=== PATIENT | female | born 1955 | race Caucasian/White ===

== ENCOUNTER → 2017-01-13 | Outpatient (CLI) | payer OTHER ==
[~2017-01-13] MED LIST: ALTA1CAP2 PO; BISO5TAB5 PO; COUM2.5T17 PO; PERC5TAB12 PO
[2017-01-13 10:39] LABS: MEAN CORPUSCULAR HEMOGLOBIN 29.7 pg (27.0-33.0); MEAN CORPUSCULAR HGB CONC 34.2 g/dl (32.0-36.5); MEAN CORPUSCULAR VOLUME 86.8 fl (80.0-96.0); RED CELL DISTRIBUTION WIDTH 12.8 % (11.5-14.5); WHITE BLOOD COUNT 4.8 K/mm3 (4.0-10.0)
[2017-01-13 10:43] LABS: INR 0.91
--- NOTE | 2017-01-13 10:57 | REP ---
Chest two views HISTORY: Preop Comparison: None The lungs are clear. The cardiac silhouette is enlarged. The pulmonary vasculature is normal in appearance. The bony structure is intact. IMPRESSION: Cardiomegaly. Signed by Naeem Cabrera MD 01/13/2017 10:48 A
[2017-01-13 11:09] LABS: ALBUMIN 3.8 GM/DL (3.2-5.2); ALBUMIN/GLOBULIN RATIO 1.23 (1.00-1.93); ALKALINE PHOSPHATASE 48 U/L (45-117); ALT/SGPT 18 U/L (12-78); ANION GAP 7 MEQ/L (8-16); AST/SGOT 15 U/L (15-37); BILIRUBIN,TOTAL 0.4 MG/DL (0.2-1.0); BLOOD UREA NITROGEN 7 MG/DL (7-18); CALCIUM LEVEL 8.9 MG/DL (8.8-10.2); CARBON DIOXIDE LEVEL 30 MEQ/L (21-32); CHLORIDE LEVEL 96 MEQ/L (98-107); CREATININE FOR GFR 0.58 MG/DL (0.55-1.02); GLOMERULAR FILTRATION RATE > 60.0 (>45); GLUCOSE, FASTING 98 MG/DL (80-110); POTASSIUM SERUM 4.1 MEQ/L (3.5-5.1); SODIUM LEVEL 133 MEQ/L (136-145); TOTAL PROTEIN 6.9 GM/DL (6.4-8.2)
--- NOTE | 2017-01-13 19:22 | ECGEPIP ---
Stationary ECG Study [facility] [place] Test Date: 2017-01-13 Pat Name: JELANI RAY Department: Room: - Gender: F Etl Application Developer: : [id number] Requested By: Justino Cano Order Number: [id number] Reading MD: Brian Rosales Measurements Intervals [place] Rate: 71 P: 7 NH: 184 QRS: 25 QRSD: 91 T: 9 QT: 378 QTc: 411 Interpretive Statements Normal sinus rhythm with isolated PAC. Somewhat low voltages with poor precordial R-wave progression and persistent S waves V5 and V6; body habitus versus pulmonary disease. Rule out prior septal infarction. No prior tracing. Clinical correlation advised. Electronically Signed On 01-13-2017 19:22:25 EDT by Brian Rosales
== END ==
LOC: M ADMPAT 09:36
PROVIDERS: ATTEND Orthopaedic Surgery
DX: Z01.818 Encounter for other preprocedural examination (principal); M16.11 Unilateral primary osteoarthritis, right hip; I51.7 Cardiomegaly

== ENCOUNTER 2017-01-20 06:27 | Inpatient (IN) | payer OTHER ==
[2017-01-13 10:14] VITALS: BP 132/76
--- NOTE | 2017-01-15 11:22 | HPE ---
DATE OF ADMISSION: 01/20/2017 HISTORY OF PRESENT ILLNESS: This is a pleasant female with continuing symptomatic right hip osteoarthritis. The patient has consented for a right total hip arthroplasty per Dr. Jerome Hampton. X-rays are consistent with advanced osteoarthritis. The patient is scheduled to see Dr. Aviles today for medical optimization. ALLERGIES: None known to drugs. CURRENT MEDICATIONS: - Mobic 7.5 mg - Ramipril 2.5 mg - vitamin D3 2000 units - [place] 3 1200 mg - glucosamine chondroitin MEDICAL PROBLEM LIST (includes): 1. Symptomatic right hip osteoarthritis. 2. Hypertension. SURGICAL HISTORY: Positive for total hysterectomy. FAMILY HISTORY: Positive for hypertension, skin cancer, hypercholesteremia, arthritis. SOCIAL HISTORY: Denies ethanol intake, smoking or illicit drugs. REVIEW OF SYSTEMS: Denies chest pain, shortness of breath, dyspnea on exertion, fever, chills, malaise, upper respiratory or urinary tract symptoms. PHYSICAL EXAMINATION: Weight 169, height 5 feet 4-1/4 inches, temperature 97.8, blood pressure (BP) 160/90, pulse 76, respirations 18. This is a pleasant, well-developed, well-nourished female in no acute distress. She is alert and oriented times three. Mood and affect are appropriate. She is ambulating with favoring of her left lower extremity. No gross antalgia or assistive device. Lower extremities were inspected. Skin temperature, sensory and motor are within normal limits. Right hip range of motion is limited and irritable throughout ranges. Bowel soft, nontender, with sounds times four. Chest rises symmetrically. Negative murmurs, gallops or rubs. Lungs: Clear to auscultation. Neck: Supple. Negative jugular venous distention (JVD) or bruits. Normocephalic. LABS AND DIAGNOSTICS: Were reviewed. Her urinalysis (UA) showed 2+ leukocyte esterase, 1+ urine blood, 20 WBC urine auto, 4 RBC urine auto, bacteria urine auto 1+. Urine culture specimen appeared contaminated. Nasal and sinus culture showed normal raven present, Staphylococcus aureus heavy. Chest x-ray as read by Dr. Cabrera showed cardiomegaly via [facility], transcribed on 01/13/2017. EKG normal sinus rhythm with isolated PAC as read by Dr. Rosales. IMPRESSION: 1. Symptomatic right hip osteoarthritis. 2. Patient consented for right total hip arthroplasty per Dr. Jerome Hampton. 3. Medical optimization scheduled today with Dr. Aviles. 4. mail caller to operating room (OR) 2 grams IV Kefzol. 5. Sequential compression device (SCD) and thromboembolic deterrent stockings (TEDS) in OR. 6. Hibiclens and Bactroban protocol per heavy Staphylococcus aureus on nasal and sinus culture. [facility]
[~2017-01-20] VITALS: Ht 162.6 cm; Wt 74.8 kg
[2017-01-20] VITALS (11 sets, daily range): BP systolic 120–172; BP diastolic 64–90; O2SAT 98–99
[~2017-01-20 06:27] MED LIST changes: -BISO5TAB5 PO; -COUM2.5T17 PO; -PERC5TAB12 PO
[2017-01-20] MEDS ORDERED: LR 1,000 ML IV SCH ×2 (07:00→10:00)
[2017-01-20] MEDS ORDERED: ACETAMINOPHEN 500 MG TAB PO ONE (07:00)
[2017-01-20] MEDS ORDERED: LR 1,000 ML IV ONE (07:00)
[2017-01-20] MEDS ORDERED: ceFAZolin 1GM INJ (J0690) As Ordered ONE (07:01)
[2017-01-20] MEDS ORDERED: fentaNYL 100 MCG/2 ML INJECTION (J3010) As Ordered ONE (07:09)
[2017-01-20] MEDS ORDERED: BISO5TAB5 PO (07:09)
[2017-01-20] MEDS ORDERED: MIDAZOLAM INJ 2 MG/2 ML VIAL (J2250) As Ordered ONE (07:09)
[2017-01-20] MEDS ORDERED: PROPOFOL 200 MG/20 ML VIAL As Ordered ONE (08:21)
[2017-01-20] MEDS ORDERED: ONDANSETRON 4MG/2ML VIAL (J2405) As Ordered ONE (08:21)
[2017-01-20] MEDS ORDERED: LIDOCAINE 2% INJ 100 MG/5 ML SDV (FOR ANES.) As Ordered ONE (08:21)
[2017-01-20] MEDS ORDERED: hydrALAZINE INJ 20 MG/ML VIAL As Ordered ONE (08:26)
[2017-01-20] MEDS ORDERED: dexameTHASONE 4 MG/ML 1ML VIAL (J1100) As Ordered ONE (09:05)
[2017-01-20] MEDS ORDERED: MORPHINE 1MG/ML IN 0.9% NACL 100ML IV BAG As Ordered ONE (09:49)
[2017-01-20] MEDS ORDERED: diphenhydrAMINE INJ 50MG/ML VIAL (J1200) IV PRN (10:00)
[2017-01-20] MEDS ORDERED: fentaNYL 100 MCG/2 ML INJECTION (J3010) IV PRN (10:00)
[2017-01-20] MEDS ORDERED: ONDANSETRON 4MG/2ML VIAL (J2405) IV PRN ×2 (10:00)
[2017-01-20] MEDS ORDERED: EPIDURAL/PCA KEYS XX PRN (10:00)
[2017-01-20] MEDS ORDERED: MORPHINE 1MG/ML IN 0.9% NACL 100ML IV BAG IV PRN (10:00)
[2017-01-20] MEDS ORDERED: NALBUPHINE HCL 10 MG/ML AMP (J2300) IV PRN (10:00)
[2017-01-20] MEDS: LR 1,000 ML IV SCH ×2 (10:00→22:30)
[2017-01-20] MEDS ORDERED: ACETAMINOPHEN TAB 650MG DOSE (2X325MG) PO PRN (10:00)
[2017-01-20] MEDS ORDERED: MORPHINE 2 MG/ML 1ML SYRINGE IV PRN (10:00)
[2017-01-20] MEDS ORDERED: FLEET ENEMA PR PRN (10:00)
[2017-01-20] MEDS ORDERED: NALOXONE INJ 0.4 MG/1 ML VIAL (J2310) IV PRN (10:00)
--- NOTE | 2017-01-20 13:44 | IPNPDOC ---
Subjective Date Seen The patient was seen on 01/20/17. Subjective Chief Complaint/HPI The patient is a 61-year-old female admitted with a reason for visit of Right Hip Arthritis. Events since last encounter Pain controlled, using peanut sheller, no chest pain, not short of breath Constitutional: Denies: Chills Pulmonary: Denies: Dyspnea, Cough Cardiovascular: Denies: Chest Pain Gastrointestinal: Denies: Nausea, Vomiting, Abdominal Pain Objective Physical Examination General Exam: Positive: Alert, Cooperative, No Acute Distress ENT Exam: Positive: Mucous membr. moist/pink Chest Exam: Positive: Clear to auscultation, Negative: Rales, Rhonchi, Wheezing Heart Exam: Positive: Rate Normal, Regular Rhythm, Normal S1, Normal S2 Abdomen Exam: Positive: BS Hypoactive, Soft, Negative: Tenderness Extremity Exam: Negative: Edema Assessment /Plan Problems (1) OA (osteoarthritis) Problem Text: Patient s/p R hip arthoplasty completed 01/20/17 Pain management, dvt prophylaxis, bowel regimen, activity, d/c per ortho (2) HTN (hypertension) Problem Text: Elevated related to pain continue recently started beta saurabh hold ailyn inhibitor (3) Hyperlipidemia Status: Chronic Problem Text: diet controlled Plan/VTE VTE Prophylaxis Ordered?: Yes VS, I&O, 24H, Fishbone Vital Signs/I&O Vital Signs Date Time Temp Pulse Resp B/P (MAP) Pulse Ox O2 Delivery O2 Flow Rate FiO2 01/20/17 11:05 97.9 58 20 160/80 (106) 98 Room Air MARY OLIVEIRA MD Jan 20, 2017 13:44
[2017-01-20] MEDS ORDERED: WARFARIN SOD 5 MG TAB PO ONE (17:00)
--- NOTE | 2017-01-21 00:43 | RO ---
DATE OF PROCEDURE: 01/20/2017 PREPROCEDURE DIAGNOSIS: Right hip osteoarthritis. POSTPROCEDURE DIAGNOSIS: Right hip osteoarthritis. PROCEDURE: Right total hip arthroplasty using a size 52 [place] cup with a 36 neutral liner and a high offset #7 [place] stem with a +5 neck. SURGEON: Dr. Justino Hampton STUDIO HAND: Mr. Valentino Ledesma ANESTHESIA: Spinal. ESTIMATED BLOOD LOSS: 150 mL. SPECIMENS: Femoral head. COMPLICATIONS: None. DESCRIPTION OF PROCEDURE: Antibiotics were given intravenously preoperatively and successful spinal anesthetic was induced, Brenner catheter was placed, then she was placed in a lateral decubitus position with a Fromberg hip positioner utilized, axillary roll was utilized, down leg well padded, especially the peroneal nerve. Right hip area was then prepped and draped in the usual sterile fashion. Then, after an appropriate time-out, a longitudinal incision was made for a direct lateral approach to the hip. Bovie cautery was used to coagulate the crossing vessels, and then we divided the tensor fascia in line with the skin incision, split the gluteus medius and anterior one-third, posterior two-third junction, divided the underlying gluteus minimus and hip capsule, carefully dissected off the proximal femur as we externally rotated and dislocated the hip anteriorly. Starter reamer was placed in the piriformis fossa, followed by the canal finding reamer, then the lateralizing reamer, then we reamed up to a size 7 reamer. Femoral neck osteotomy was performed with a femoral neck guide. We then broached up to a size 7. Calcar planing was not needed. We then exposed the acetabulum, performed a labral excision 360 degrees. She had quite a dysplastic hip, she somewhat laterally subluxed and worn superiorly. We deepened with a 47 mm reamer down to the teardrop. She had relatively soft bone and then expanded from there up to a size 51. A trial 52 fit nicely with the external guide, I think to set her abduction and version, and then I placed the real cup after copiously irrigating. The neutral liner was then placed, then we replaced the broach after irrigating copiously the femoral canal and then the trialed first with a 1.5 standard offset with a 36 mm ball. Cup was in good position, and she had good smooth flexion internal rotation with adduction as well as extension external rotation, but she needed more offset as well as a little bit more length, I judged based on the soft tissue tensioning. Thus, I trialed with a +5 high offset head and neck combination, and it gave her excellent stability to flexion internal rotation and extension external rotation, minimal soft tissue telescoping. I thought that was the appropriate size to use; thus, I removed all of the trial components, copiously irrigated out the femoral canal and the soft tissues once again and placed the real #7 stem, dried the trunnion, placed the +5 x 36 head and then reduced the hip. We then copiously irrigated once again and then carefully closed the anterior capsule and gluteus minimus back anatomically with interrupted #1 PDS sutures, then closed the gluteus medius back to the trochanter with interrupted #1 PDS sutures, irrigating between layers, closed the tensor fascia with a combination of #1 PDS suture and a #1 running Stratafix, irrigated again and closed the deep subdermal tissues with interrupted #2-0 PDS sutures, skin was closed with celsa, covered by Adaptic, dry sterile bulky dressing. She was then turned supine and transferred to the recovery room in stable condition. There were no intraoperative complications. Mr. Valentino Ledesma was critical to the success of the procedure by helping to manipulate the knee, helping to dislocate and relocate the hip several times throughout the operation, helped to close the wound, helped to apply appropriate soft tissue retraction so I could perform the operation smoothly and efficiently.
[2017-01-21 03:00] VITALS: BP 164/81
[2017-01-21] MEDS ORDERED: PERCOCET 5MG/325MG TAB PO PRN (06:45)
[2017-01-21 07:00] VITALS: BP 147/76
[2017-01-21 07:08] LABS: MEAN CORPUSCULAR HEMOGLOBIN 29.9 pg (27.0-33.0); MEAN CORPUSCULAR HGB CONC 34.4 g/dl (32.0-36.5); MEAN CORPUSCULAR VOLUME 86.8 fl (80.0-96.0); RED CELL DISTRIBUTION WIDTH 13.1 % (11.5-14.5); WHITE BLOOD COUNT 8.8 K/mm3 (4.0-10.0)
[2017-01-21 07:10] LABS: INR 1.06
[2017-01-21 07:35] LABS: ANION GAP 6 MEQ/L (8-16); BLOOD UREA NITROGEN 15 MG/DL (7-18); CALCIUM LEVEL 8.4 MG/DL (8.8-10.2); CARBON DIOXIDE LEVEL 29 MEQ/L (21-32); CHLORIDE LEVEL 98 MEQ/L (98-107); CREATININE FOR GFR 0.72 MG/DL (0.55-1.02); GLOMERULAR FILTRATION RATE > 60.0 (>45); GLUCOSE, FASTING 138 MG/DL (80-110); SODIUM LEVEL 133 MEQ/L (136-145)
--- NOTE | 2017-01-21 08:58 | REP ---
Right hip two views postoperative study: There is a total hip arthroplasty. The components are tightly applied and in satisfactory position and alignment. Skin celsa are incidentally noted. Signed by Quang Sanabria MD 01/21/2017 08:50 A
[2017-01-21] MEDS ORDERED: ONDANSETRON 4 MG TAB (S0181) PO PRN (09:15)
[2017-01-21] MEDS ORDERED: ONDANSETRON 4MG/2ML VIAL (J2405) IV PRN (09:15)
[2017-01-21 10:00] VITALS: BP 157/74
[2017-01-21] MEDS: MIRALAX *UNIT DOSE* 17GM PACKET PO SCH (10:08)
[2017-01-21] MEDS: SENOKOT S TAB PO SCH ×2 (10:08→20:56)
[2017-01-21] MEDS: MOM 30ML SUSPENSION UDC PO SCH (10:08)
[2017-01-21] MEDS: BISOPROLOL FUMARATE 5 MG TAB PO SCH (10:09)
[2017-01-21 14:00] VITALS: BP 148/72
[2017-01-21] MEDS: PERCOCET 5MG/325MG TAB PO PRN ×2 (15:58→20:56)
[2017-01-21] MEDS ORDERED: WARFARIN SOD 5 MG TAB PO ONE (17:00)
[2017-01-21 20:00] VITALS: O2SAT 97
[2017-01-21 22:00] VITALS: BP 174/83
[2017-01-22] MEDS: PERCOCET 5MG/325MG TAB PO PRN ×3 (01:06→12:34)
[2017-01-22 06:00] VITALS: BP 170/90
[2017-01-22 06:43] LABS: MEAN CORPUSCULAR HGB CONC 33.1 g/dl (32.0-36.5); MEAN CORPUSCULAR VOLUME 87.6 fl (80.0-96.0); RED CELL DISTRIBUTION WIDTH 13.3 % (11.5-14.5); WHITE BLOOD COUNT 6.4 K/mm3 (4.0-10.0)
[2017-01-22 06:46] LABS: INR 1.32
[2017-01-22 07:01] LABS: ANION GAP 6 MEQ/L (8-16); BLOOD UREA NITROGEN 11 MG/DL (7-18); CALCIUM LEVEL 8.2 MG/DL (8.8-10.2); CARBON DIOXIDE LEVEL 30 MEQ/L (21-32); CHLORIDE LEVEL 101 MEQ/L (98-107); CREATININE FOR GFR 0.62 MG/DL (0.55-1.02); GLOMERULAR FILTRATION RATE > 60.0 (>45); GLUCOSE, FASTING 112 MG/DL (80-110); POTASSIUM SERUM 4.2 MEQ/L (3.5-5.1); SODIUM LEVEL 137 MEQ/L (136-145)
[2017-01-22] MEDS ORDERED: PERC5TAB12 PO (08:02)
[2017-01-22] MEDS ORDERED: COUM2.5T17 PO (08:02)
[2017-01-22] MEDS: MIRALAX *UNIT DOSE* 17GM PACKET PO SCH (08:14)
[2017-01-22 08:15] VITALS: BP 173/80
[2017-01-22] MEDS: SENOKOT S TAB PO SCH (08:15)
[2017-01-22] MEDS: MOM 30ML SUSPENSION UDC PO SCH (08:15)
[2017-01-22] MEDS: BISOPROLOL FUMARATE 5 MG TAB PO SCH (08:15)
[2017-01-22 14:00] VITALS: BP 148/75
--- NOTE | 2017-01-28 12:45 | DSES ---
DATE OF ADMISSION: 01/20/2017 DATE OF DISCHARGE: 01/22/2017 ATTENDING PHYSICIAN: Dr. Jerome Hampton ADMISSION DIAGNOSIS: Osteoarthritis of the right hip. OTHER DIAGNOSES: Hypertension, elevated lipids. DISCHARGE DIAGNOSIS: Osteoarthritis of right hip status post right total hip arthroplasty. OPERATION PERFORMED: Right total hip arthroplasty. HISTORY: This is a pleasant 61-year-old female patient with progressively worsening right hip pain and stiffness. She failed to improve with conservative management. She was admitted for elective hip replacement on the right side. HOSPITAL COURSE: The patient was admitted on the day of surgery and underwent a right total hip arthroplasty, which was uneventful. She did well in the postoperative period and hospital course was without complications. She was up with physical therapy per their protocol and her pain was controlled on day of discharge. She was doing well, weightbearing as tolerated on the right lower extremity. She will use adjusted dose Coumadin and MATT stockings for 30 days postoperative for deep vein thrombosis (DVT) prophylaxis. She will resume her preoperative medications and diet. She was given instructions to include but not limited to wound monitoring, activity limitations. She will followup in our office in 10-14 days for surgical followup. She will resume her preoperative medications and diet. She use oral pain medications for pain control. Please refer the medical record for further details.
== END 2017-01-22 15:15 | disposition home health service (06) | DRG 470 ==
LOC: M OR 06:27 → M MS5PR 10:25
PROVIDERS: ADMIT Orthopaedic Surgery; ATTEND Orthopaedic Surgery
PROC: 0SR902A Replacement of Right Hip Joint with Metal on Polyethylene Synthetic Substitute, Uncemented, Open Approach (ICD-10-PCS; principal; 2017-01-20 07:30)
DX: M16.11 Unilateral primary osteoarthritis, right hip (principal); Z79.899 Other long term (current) drug therapy; I10 Essential (primary) hypertension; Z90.710 Acquired absence of both cervix and uterus; Z82.49 Family history of ischemic heart disease and other diseases of the circulatory system; Z80.8 Family history of malignant neoplasm of other organs or systems; Z83.49 Family history of other endocrine, nutritional and metabolic diseases; E78.5 Hyperlipidemia, unspecified

== ENCOUNTER → 2017-01-23 | Outpatient (REF) | payer OTHER ==
[~2017-01-23] MED LIST changes: +BISO5TAB5 PO; +COUM2.5T17 PO; +PERC5TAB12 PO
[2017-01-23 15:38] LABS: INR 1.58
== END ==
LOC: M LAB REF 15:18
PROVIDERS: ATTEND Nurse Practitioner Family
DX: M16.11 Unilateral primary osteoarthritis, right hip (principal); Z51.81 Encounter for therapeutic drug level monitoring; Z79.01 Long term (current) use of anticoagulants

== ENCOUNTER → 2017-02-03 | Outpatient (REF) | payer OTHER ==
[2017-02-03 11:56] LABS: INR 1.1
== END ==
LOC: M LABDRAW1 11:30
PROVIDERS: ATTEND Orthopaedic Surgery
DX: Z51.81 Encounter for therapeutic drug level monitoring (principal); Z79.01 Long term (current) use of anticoagulants

== ENCOUNTER → 2017-02-13 | Outpatient (REF) | payer OTHER ==
[2017-02-13 20:48] LABS: INR 1.34
== END ==
LOC: M LAB REF 20:26
PROVIDERS: ATTEND Orthopaedic Surgery
DX: Z51.81 Encounter for therapeutic drug level monitoring (principal); Z79.01 Long term (current) use of anticoagulants

== ENCOUNTER → 2018-08-10 | Outpatient (CLI) | payer OTHER ==
--- NOTE | 2018-08-10 16:44 | REP ---
Chest two views HISTORY: Cough Comparison: 01/13/2017 The lungs are clear. The cardiac silhouette is enlarged. The pulmonary vasculature is normal in appearance. The bony structure is intact. IMPRESSION: Cardiomegaly. Electronically Signed by Naeem Cabrera MD 08/10/2018 04:36 P
== END ==
LOC: M WUC 15:46
PROVIDERS: ATTEND Nurse Practitioner Adult Health
DX: I51.7 Cardiomegaly (principal); R05 Cough

== ENCOUNTER → 2021-02-13 | Outpatient (REF) | payer MEDICARE, OTHER ==
[~2021-02-13] MED LIST changes: +BISO5TAB14 PO; -BISO5TAB5 PO
== END ==
LOC: M LAB REF 11:18
PROVIDERS: ATTEND Physician Assistant
DX: R10.84 Generalized abdominal pain (principal); Z20.828 Contact with and (suspected) exposure to other viral communicable diseases